=== PATIENT | female | born 1960 | race Caucasian/White ===

== ENCOUNTER 2020-06-12 14:51 | Emergency (ER) | payer OTHER ==
--- NOTE | 2020-06-12 15:37 | XRAY Report ---
PROCEDURE: Chest 1 View X-Ray INDICATIONS: dyspnea TECHNIQUE: One view of the chest was acquired. COMPARISON: None. FINDINGS: Surgical changes and devices: None. Lungs and pleura: There is diffuse interstitial prominence. Streaky bibasilar opacities with small bi lateral pleural effusions. No pneumothorax. No focal consolidations. Mediastinum: Mediastinal contours appear normal. Heart size is normal. Bones and chest wall: No suspicious bony lesions. Overlying soft tissues appear unremarkable. IMPRESSION: Diffuse interstitial prominence with small bilateral pleural effusions without focal consolidations. Findings are nonspecific and may represent sequela of infectious/inflammatory process although early pulmonary edema may have a similar appearance. Reviewed by: Harish Balderas MD on 06/12/2020 3:35 PM PST Approved by: Harish Balderas MD on 06/12/2020 3:35 PM PST Station ID: [id number]
[2020-06-12 15:45] LABS: BASOPHILS % (AUTO) 0.3 %; EOSINOPHILS # (AUTO) 0.1 10^3/uL (0.0-0.7); EOSINOPHILS % (AUTO) 0.7 %; HGB - HEMOGLOBIN 12.3 g/dL (12.0-16.0); LYMPHOCYTES # (AUTO) 1.3 10^3/uL (1.5-3.5); LYMPHOCYTES % (AUTO) 17.8 %; MEAN CORPUSCULAR HEMOGLOBIN 30.2 pg (27.0-31.0); MEAN CORPUSCULAR HGB CONC 32.5 g/dL (32.0-36.0); MEAN CORPUSCULAR VOLUME 92.9 fL (81.0-99.0); MEAN PLATELET VOLUME 9.7 fL (7.9-10.8); MONOCYTES # (AUTO) 0.6 10^3/uL (0.0-1.0); MONOCYTES % (AUTO) 8.3 %; NEUTROPHILS # (AUTO) 5.1 10^3/uL (1.5-6.6); NEUTROPHILS % (AUTO) 72.6 %; PLT - PLATELET COUNT 313 10^3/uL (130-450); RED BLOOD COUNT 4.07 10^6/uL (4.20-5.40); RED CELL DISTRIBUTION WIDTH 12.3 % (12.0-15.0)
--- NOTE | 2020-06-12 15:52 | ED Physician Documentation ---
PD HPI DYSPNEA - Stated complaint Stated Complaint: LEG SWELLING, SOA,COUGH - Chief complaint Chief Complaint: Resp - History obtained from History obtained from: Patient - History of Present Illness Timing - onset: How many weeks ago (3) Timing - onset during: Rest Timing - duration: Weeks (3) Timing - details: Gradual onset, Still present Inciting event(s): URI Improved by: Rest, Sitting up Associated symptoms: Cough, Bilateral edema. No: Fever, Hemoptysis, Wheezing Similar symptoms before: Has not had sx before Recently seen: Clinic - Additional information Additional information: has had a CXR and EKG done sent here from urgent care with concerns for PE/CHF. 59-year-old female who was previously well has developed a dry cough about 3 weeks ago. She just felt like she had to clear her cough and felt like if she could cough something up this would improve. She has slowly developed exertional dyspnea that is worsening she is continuing to work at [employer] and about 1 week ago she began to develop swelling to her ankles. She does not have any history of hypertension or heart disease and has really rarely needed to see the doctor about anything. Review of Systems Constitutional: denies: Fever, Chills, Myalgias, Fatigue Eyes: denies: Decreased vision Ears: denies: Ear pain Nose: denies: Rhinorrhea / runny nose, Congestion Throat: denies: Sore throat Cardiac: denies: Chest pain / pressure, Palpitations Respiratory: reports: Dyspnea, Cough GI: denies: Abdominal Pain, Nausea, Vomiting : denies: Dysuria, Frequency Skin: denies: Rash Musculoskeletal: reports: Extremity swelling. 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 - Present Medications Home Medications: Ambulatory Orders Medication Instructions Recorded Confirmed No Known Home Medications 06/12/20 06/12/20 - Allergies Allergies/Adverse Reactions: Allergies Allergy/AdvReac Type Severity Reaction Status Date / Time codeine Allergy Edema Verified 06/12/20 15:13 - Social History Does the pt smoke?: No Smoking Status: Never smoker Does the pt drink ETOH?: No Does the pt have substance abuse?: No - Immunizations Immunizations: TDAP current <10years - POLST Patient has POLST: No PD ED PE NORMAL - General General: Alert and oriented X 3, No acute distress, Well developed/nourished - HEENT HEENT: Atraumatic, PERRL, EOMI - Neck Neck: Supple, no meningeal sign, No bony TTP - Cardiac Cardiac: Other (tachy with 2/6 holosystolic murmer at LSB) - Respiratory Respiratory: No respiratory distress, Clear bilaterally - Abdomen Abdomen: Soft, Non tender - Back Back: No CVA TTP, No spinal TTP - Derm Derm: Normal color, Warm and dry, No rash - Extremities Extremities: No deformity, Other (bilateral pitting edema ) - Neuro Neuro: Alert and oriented X 3, 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, No motor deficit, No sensory deficit, Normal speech Eye Opening: Spontaneous Motor: Obeys Commands Verbal: Oriented GCS Score: 15 - Psych Psych: Normal mood, Normal affect Results - Vitals Vitals: Vital Signs - 24 hr 06/12/20 06/12/20 06/12/20 15:11 16:14 17:16 Temperature 36.3 C L 36.8 C Heart Rate 90 120 H 116 H Respiratory 20 22 24 Rate Blood Pressure 132/76 H 120/84 H 106/53 L O2 Saturation 100 100 96 06/12/20 06/12/20 06/12/20 18:37 19:13 19:22 Temperature 37.3 C Heart Rate 117 H 112 H Respiratory 17 18 16 Rate Blood Pressure 134/85 H O2 Saturation 100 100 06/12/20 20:38 Temperature Heart Rate Respiratory 15 Rate Blood Pressure O2 Saturation Oxygen O2 Source Room air - EKG (time done) 1540 Rate: Rate (enter#) (115) Rhythm: LAE QRS: LVH, Low voltage (precordial extremity leads) Ischemia: ST elevation c/w ischemia (to lead V3) Compare to prior EKG: Old EKG unavailable Computer interpretation: Agree with computer - Labs Labs: Laboratory Tests 06/12/20 06/12/20 06/12/20 15:35 15:38 15:38 WBC 7.0 RBC 4.07 L Hgb 12.3 Hct 37.8 MCV 92.9 MCH 30.2 MCHC 32.5 RDW 12.3 Plt Count 313 MPV 9.7 Neut # (Auto) 5.1 Lymph # (Auto) 1.3 L [place] # (Auto) 0.6 Eos # (Auto) 0.1 Baso # (Auto) 0.0 Absolute Nucleated RBC 0.00 Nucleated RBC % 0.0 Sodium 131 L Potassium 4.1 Chloride 100 L Carbon Dioxide 21 Anion Gap 10.0 BUN 25 H Creatinine 0.6 Estimated GFR (MDRD) 102 Glucose 123 H Calcium 8.9 Total Bilirubin 0.5 AST 113 H ALT 169 H Alkaline Phosphatase 172 H Troponin I High Sens B-Natriuretic Peptide Total Protein 6.5 L Albumin 3.8 Globulin 2.7 Albumin/Globulin Ratio 1.4 Lipase 45 TSH 6.64 H 06/12/20 06/12/20 15:38 15:47 WBC RBC Hgb Hct MCV MCH MCHC RDW Plt Count MPV Neut # (Auto) Lymph # (Auto) [place] # (Auto) Eos # (Auto) Baso # (Auto) Absolute Nucleated RBC Nucleated RBC % Sodium Potassium Chloride Carbon Dioxide Anion Gap BUN Creatinine Estimated GFR (MDRD) Glucose Calcium Total Bilirubin AST ALT Alkaline Phosphatase Troponin I High Sens 23.6 H* B-Natriuretic Peptide 2790 H Total Protein Albumin Globulin Albumin/Globulin Ratio Lipase TSH - Rads (name of study) cxr Radiology: Prelim report reviewed (Impression: Diffuse interstitial prominence with small bilateral pleural effusions without focal consolidations. Findings are more nonspecific and may represent sequela of infectious/inflammatory process although early pulmonary edema may have similar appearance.), EMP read indepedently, See rad report cta chest Radiology: Prelim report reviewed (Impression: 1. Moderate right and small left pleural effusions with adjacent atelectasis. No pulmonary embolism.), EMP read indepedently, See rad report Procedures - IVC sono (time) 1600 Bedside IVC sono: IVC measures (cm) (2.56), High CVP PD MEDICAL DECISION MAKING - ED course Complexity details: reviewed results, re-evaluated patient, considered annemarie bruno, d/w patient, d/w customer sales consultant (DR. Mcwilliams at [facility] cardiology recommends diuresis and transfer to hospitalist service. ) ED course: 59-year-old female presents to the emergency department with progressive exertional dyspnea and a dry cough with ankle swelling. Her chest x-ray is concerning for bilateral pleural effusions and not much edema. I interrogated the IVC and found it to be enlarged at 2.54cm the right ventricle appears generous and I became concerned about a potential PE and a CT angiogram was obtained without evidence of PE. Her BNP is elevated above 2000, but the heart is not enlarged. She has minimal elevation in the trop consistent with strain. She is administered IV lasix. We do not have echo here until next week and I believe this patient would benefit from diuresis and cardiology evaluation and we have reached out to our friends at [facility]. Dr. Obrien has agreed to consult on the patient and recommends admission to the hospitalist at [facility] and Dr. Matthews the hospitalist is graciously accepting the patient in transfer. Departure - Departure Disposition: 02 Transfer Acute Care Hosp Clinical Impression: Congestive heart failure Qualifiers: Heart failure type: unspecified Heart failure chronicity: acute Qualified Code(s): I50.9 - Heart failure, unspecified Condition: Stable
[2020-06-12 15:58] LABS: ALBUMIN 3.8 g/dL (3.2-5.5); ALBUMIN/GLOBULIN RATIO 1.4 (1.0-2.2); BILIRUBIN,TOTAL 0.5 mg/dL (0.2-1.0); CALCIUM 8.9 mg/dL (8.5-10.3); CREATININE 0.6 mg/dL (0.4-1.0); TOTAL PROTEIN 6.5 g/dL (6.7-8.2)
[2020-06-12] MEDS ORDERED: IOVERSOL 320 100 ML VIAL IVP ONE ×2 (16:32→17:58)
--- NOTE | 2020-06-12 17:52 | CT Report ---
PROCEDURE: ANGIO CHEST W/WO INDICATIONS: dyspnea with right heart strain CONTRAST: IV CONTRAST: Optiray 320 ml: 80 PO CONTRAST: *NO PO CONTRAST TECHNIQUE: After the administration of intravenous contrast, 2 mm thick sections acquired from the pulmonary api zahira to the posterior costophrenic angles. 3-dimensional maximum intensity projection (MIP) coronal a nd sagittal reformats were then acquired through the thorax. For radiation dose reduction, the follow ing was used: automated exposure control, adjustment of mA and/or kV according to patient size. COMPARISON: FINDINGS: Image quality: Excellent. Pulmonary arteries: Pulmonary arteries are normal in size, and demonstrate no intraluminal filling d efects to suggest central pulmonary embolism. Lungs and pleura: There are moderate right and small left pleural effusions with adjacent atelectasis . No focal consolidation. No pneumothorax. Central and peripheral airways are patent. Mediastinum: Cardiac chambers are enlarged, predominantly the left ventricle. No pericardial effusion . No mediastinal or hilar adenopathy. Thoracic aorta is normal in caliber and enhancement. Esophagu s is normal in caliber, without hiatal hernia. Bones and chest wall: No suspicious bony lesions. Ribs and thoracic spine appear intact throughout. The thyroid is normal. No axillary or supraclavicular adenopathy. Abdomen: Visualized upper abdominal solid organs appear normal in the early arterial phase of enhanc ement. IMPRESSION: 1. Moderate right and small left pleural effusions with adjacent atelectasis. 2. No pulmonary embolism. Reviewed by: Obie Nevarez on 06/12/2020 5:50 PM [facility] Approved by: Obie Nevarez on 06/12/2020 5:50 PM [facility] Station ID: [id number]
[2020-06-12] MEDS ORDERED: FUROSEMIDE 40 MG/4 ML VIAL IVP STA (18:13)
[2020-06-12 18:38] VITALS: BP 134/85
[2020-06-12 21:31] LABS: C. PNEUMONIAE- RESP PCR PANEL NOT DETECTED
== END 2020-06-12 21:58 | disposition short-term general hospital (02) ==
LOC: ED 14:51
DX: I50.9 Heart failure, unspecified (principal); R00.0 Tachycardia, unspecified; I50.1 Left ventricular failure, unspecified; Z20.828 Contact with and (suspected) exposure to other viral communicable diseases
CPT/HCPCS: 0202U; 36415; 71045; 71275; 83690; 83880; 84484; 93005; 96374; 99284; 99285; Q9967; 80053; 84443; 85025

== ENCOUNTER 2020-06-12 21:53 | Outpatient (CLI) | payer OTHER | END 2020-06-12 21:54 | disposition short-term general hospital (02) | LOC: EMS 21:53 | PROVIDERS: ATTEND Surgery | DX: I50.9 Heart failure, unspecified (principal) | CPT/HCPCS: A0425; A0426 ==

== ENCOUNTER 2020-08-06 09:45 | Observation (INO) | payer OTHER ==
--- NOTE | 2020-08-06 10:10 | ED Physician Documentation ---
History of Present Illness - Stated complaint Stated Complaint: SOA/SWELLING - Chief complaint Chief Complaint: Cardiac - History obtained from History obtained from: Patient - Additonal information Additional information: 59-year-old woman with past medical history of cardiomyopathy diagnosed at [facility] in May on digoxin, Lasix 20 mg daily, metoprolol 25 mg daily. Presents with progressive dyspnea on exertion, bilateral lower extremity edema left worse than right, and 7 to 10 days of nonproductive cough associated with fatigue and orthopnea. Patient denies fevers chills chest pain nausea vomiting abdominal pain back pain or diarrhea. Review of Systems Constitutional: reports: Myalgias, Fatigue. 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 - Present Medications Home Medications: Ambulatory Orders Medication Instructions Recorded Confirmed Aspirin [Aspirin EC] 81 mg PO DAILY 08/06/20 08/06/20 Digoxin [Lanoxin] 125 mcg PO DAILY 08/06/20 08/06/20 Furosemide [Lasix] 20 mg PO DAILY 08/06/20 08/06/20 Metoprolol Succinate [Toprol Xl] 25 mg PO DAILY 08/06/20 08/06/20 - Allergies Allergies/Adverse Reactions: Allergies Allergy/AdvReac Type Severity Reaction Status Date / Time codeine Allergy Edema Verified 08/06/20 09:58 - Social History Does the pt smoke?: No Smoking Status: Never smoker Does the pt drink ETOH?: No Does the pt have substance abuse?: No - Immunizations Immunizations: TDAP current <10years - POLST Patient has POLST: No PD ED PE NORMAL - Vitals Vital signs reviewed: Yes - General General: Alert and oriented X 3, No acute distress - HEENT HEENT: Atraumatic, PERRL, EOMI - Neck Neck: Supple, no meningeal sign - Cardiac Cardiac: Other - Respiratory Respiratory: No respiratory distress, Other (Bilateral dependent crackles) - Abdomen Abdomen: Normal bowel sounds, Non tender, Non distended - Female Female : Deferred - Rectal Rectal: Deferred - Back Back: No CVA TTP - Derm Derm: Normal color - Extremities Extremities: No deformity, Other (BL LE, left > right) - Neuro Neuro: Alert and oriented X 3 - Psych Psych: Normal mood, Normal affect Results - Vitals Vitals: Vital Signs - 24 hr 08/06/20 08/06/20 08/06/20 09:54 10:10 10:42 Temperature 36.6 C 36.5 C Heart Rate 57 L 113 H 108 H Respiratory 22 16 20 Rate Blood Pressure 129/88 H 95/85 H 116/94 H O2 Saturation 96 98 100 08/06/20 13:17 Temperature Heart Rate 91 Respiratory 18 Rate Blood Pressure 118/66 O2 Saturation 99 Oxygen O2 Source Room air - EKG (time done) 1330 Rate: Rate (enter#) (114) Rhythm: Other (sinus tach with frequent PVCs) Intervals: Normal MD Ischemia: Other (jailyn in anterior leads c/w prior ekg 06/10. evidence of LAE/LVH) - Labs Labs: Laboratory Tests 08/06/20 08/06/20 08/06/20 10:26 10:26 10:26 WBC 9.6 RBC 4.55 Hgb 12.9 Hct 40.3 MCV 88.6 MCH 28.4 MCHC 32.0 RDW 14.2 Plt Count 334 MPV 10.1 Neut # (Auto) 7.5 H Lymph # (Auto) 1.1 L [place] # (Auto) 0.9 Eos # (Auto) 0.1 Baso # (Auto) 0.0 Absolute Nucleated RBC 0.00 Nucleated RBC % 0.0 VBG pH VBG pCO2 VBG pO2 VBG HCO3 VBG Total CO2 VBG O2 Saturation VBG Base Excess Sodium 129 L Potassium 4.5 Chloride 97 L Carbon Dioxide 20 L Anion Gap 12.0 BUN 32 H Creatinine 0.9 Estimated GFR (MDRD) 64 L Glucose 168 H Calcium 8.7 Total Bilirubin 1.5 H AST 158 H ALT 195 H Alkaline Phosphatase 186 H Troponin I High Sens 23.0 H* B-Natriuretic Peptide Total Protein 6.4 L Albumin 3.4 Globulin 3.0 Albumin/Globulin Ratio 1.1 Lipase 33 Nasal Adenovirus (PCR) Nasal B. parapertussis DNA (PCR) Nasal Coronavir 229E PCR Nasal Coronavir HKU1 PCR Nasal Coronavir NL63 PCR Nasal Coronavir OC43 PCR Nasal Enterovir/Rhinovir PCR Nasal Influenza B PCR Nasal Influenza A PCR Nasal Parainfluen 1 PCR Nasal Parainfluen 2 PCR Nasal Parainfluen 3 PCR Nasal Parainfluen 4 PCR Nasal RSV (PCR) Nasal B.pertussis DNA PCR Nasal C.pneumoniae (PCR) [place] Human Metapneumo PCR Nasal M.pneumoniae (PCR) Nasal SARS-CoV-2 (PCR) 08/06/20 08/06/20 08/06/20 10:26 10:26 11:15 WBC RBC Hgb Hct MCV MCH MCHC RDW Plt Count MPV Neut # (Auto) Lymph # (Auto) [place] # (Auto) Eos # (Auto) Baso # (Auto) Absolute Nucleated RBC Nucleated RBC % VBG pH 7.437 H VBG pCO2 27.4 L VBG pO2 56.4 H VBG HCO3 18.1 L VBG Total CO2 18.9 L VBG O2 Saturation 88.4 H VBG Base Excess -4.6 L Sodium Potassium Chloride Carbon Dioxide Anion Gap BUN Creatinine Estimated GFR (MDRD) Glucose Calcium Total Bilirubin AST ALT Alkaline Phosphatase Troponin I High Sens B-Natriuretic Peptide 4708 H Total Protein Albumin Globulin Albumin/Globulin Ratio Lipase Nasal Adenovirus (PCR) NOT DETECTED Nasal B. parapertussis DNA (PCR) NOT DETECTED Nasal Coronavir 229E PCR NOT DETECTED Nasal Coronavir HKU1 PCR NOT DETECTED Nasal Coronavir NL63 PCR NOT DETECTED Nasal Coronavir OC43 PCR NOT DETECTED Nasal Enterovir/Rhinovir PCR DETECTED A Nasal Influenza B PCR NOT DETECTED Nasal Influenza A PCR NOT DETECTED Nasal Parainfluen 1 PCR NOT DETECTED Nasal Parainfluen 2 PCR NOT DETECTED Nasal Parainfluen 3 PCR NOT DETECTED Nasal Parainfluen 4 PCR NOT DETECTED Nasal RSV (PCR) NOT DETECTED Nasal B.pertussis DNA PCR NOT DETECTED Nasal C.pneumoniae (PCR) NOT DETECTED [place] Human Metapneumo PCR NOT DETECTED Nasal M.pneumoniae (PCR) NOT DETECTED Nasal SARS-CoV-2 (PCR) NOT DETECTED PD MEDICAL DECISION MAKING - ED course ED course: 59-year-old woman presents with CHF exacerbation, likely triggered by enterovirus/rhinovirus infection. Patient amenable to admission. Will discuss with hospitalist. 80 mg IV Lasix given. Departure - Departure Disposition: 66 [facility] DC/Xfer Clinical Impression: Viral upper respiratory illness, Acute exacerbation of CHF (congestive heart failure) Condition: Stable
--- NOTE | 2020-08-06 10:26 | XRAY Report ---
PROCEDURE: Chest 1 View X-Ray INDICATIONS: Chest pain TECHNIQUE: One view of the chest was acquired. COMPARISON: 06/12/2020 FINDINGS: Surgical changes and devices: None. Lungs and pleura: Trace bilateral pleural fluid collections. Mild bilateral interstitial prominence. Mediastinum: Mediastinal contours appear normal. Heart size is normal. Bones and chest wall: No suspicious bony lesions. Overlying soft tissues appear unremarkable. IMPRESSION: Trace bilateral pleural fluid collections. Mild bilateral interstitial prominence is nonspecific, but could represent pulmonary edema or atypica l pneumonia. Reviewed by: Lizbeth Luke MD, PhD on 08/06/2020 10:25 AM [facility] Approved by: Lizbeth Luke MD, PhD on 08/06/2020 10:25 AM [facility] Station ID: [id number]
[2020-08-06 10:34] LABS: BASOPHILS % (AUTO) 0.3 %; EOSINOPHILS # (AUTO) 0.1 10^3/uL (0.0-0.7); EOSINOPHILS % (AUTO) 0.9 %; HGB - HEMOGLOBIN 12.9 g/dL (12.0-16.0); LYMPHOCYTES # (AUTO) 1.1 10^3/uL (1.5-3.5); MEAN CORPUSCULAR HEMOGLOBIN 28.4 pg (27.0-31.0); MEAN CORPUSCULAR VOLUME 88.6 fL (81.0-99.0); MEAN PLATELET VOLUME 10.1 fL (7.9-10.8); MONOCYTES # (AUTO) 0.9 10^3/uL (0.0-1.0); MONOCYTES % (AUTO) 9.4 %; NEUTROPHILS # (AUTO) 7.5 10^3/uL (1.5-6.6); NEUTROPHILS % (AUTO) 78.2 %; PLT - PLATELET COUNT 334 10^3/uL (130-450); RED BLOOD COUNT 4.55 10^6/uL (4.20-5.40); RED CELL DISTRIBUTION WIDTH 14.2 % (12.0-15.0); WHITE BLOOD COUNT 9.6 x10^3/uL (4.8-10.8)
[2020-08-06 10:39] LABS: VBG BASE EXCESS -4.6 mmol/L (-2 - +2); VBG PCO2 27.4 mmHg (41-51); VBG PH 7.437 (7.31-7.41); VBG PO2 56.4 mmHg (25-47); VBG TOTAL CO2 18.9 mmol/L (24-29)
[2020-08-06 10:46] LABS: ALBUMIN 3.4 g/dL (3.2-5.5); ALBUMIN/GLOBULIN RATIO 1.1 (1.0-2.2); BILIRUBIN,TOTAL 1.5 mg/dL (0.2-1.0); CALCIUM 8.7 mg/dL (8.5-10.3); CREATININE 0.9 mg/dL (0.4-1.0); TOTAL PROTEIN 6.4 g/dL (6.7-8.2)
[2020-08-06] MEDS ORDERED: IOVERSOL 320 100 ML VIAL IVP ONE ×2 (11:42→12:49)
[2020-08-06] MEDS ORDERED: LACTATED RINGERS 500 ML IV STA (11:42)
[2020-08-06 12:18] LABS: C. PNEUMONIAE- RESP PCR PANEL NOT DETECTED
--- NOTE | 2020-08-06 12:53 | CT Report ---
PROCEDURE: ANGIO CHEST W/WO INDICATIONS: Shortness of breath, history of cardiomyopathy CONTRAST: IV CONTRAST: Optiray 320 ml: 80 PO CONTRAST: *NO PO CONTRAST TECHNIQUE: After the administration of intravenous contrast, 2 mm thick sections acquired from the pulmonary api zahira to the posterior costophrenic angles. 3-dimensional maximum intensity projection (MIP) coronal a nd sagittal reformats were then acquired through the thorax. For radiation dose reduction, the follow ing was used: automated exposure control, adjustment of mA and/or kV according to patient size. COMPARISON: 06/12/2020 FINDINGS: Image quality: Excellent. Pulmonary arteries: Pulmonary arteries are normal in size, and demonstrate no intraluminal filling d efects to suggest central pulmonary embolism. Lungs and pleura: Lungs are clear. Moderate-sized bilateral pleural effusions are redemonstrated, si milar size to those previously present. No pneumothorax. Central and And peripheral airways are paten t. Mediastinum: Heart size is mildly enlarged, particularly the left ventricle, but without pericardial effusion. No mediastinal or hilar adenopathy. Thoracic aorta is normal in caliber and enhancement. Mild calcific atherosclerosis. Esophagus is normal in caliber, without hiatal hernia. Bones and chest wall: No suspicious bony lesions. Ribs and thoracic spine appear intact throughout. The thyroid is normal. No axillary or supraclavicular adenopathy. Abdomen: Visualized upper abdominal solid organs appear normal in the early arterial phase of enhanc ement. IMPRESSION: 1. No pulmonary embolus. 2. Stable moderate size bilateral pleural effusions and chronic mild cardiomegaly suggesting CHF. Reviewed by: Mari Villeda MD on 08/06/2020 11:52 AM [facility] Approved by: Mari Villeda MD on 08/06/2020 11:52 AM [facility] Station ID: [id number]
[2020-08-06] MEDS ORDERED: FUROSEMIDE 40 MG/4 ML VIAL IVP STA (13:16)
[2020-08-06] MEDS ORDERED: ACETAMINOPHEN 325 MG TABLET PO PRN ×2 (14:01→20:55)
[2020-08-06] MEDS ORDERED: SODIUM CHLORIDE FLUSH 0.9% 10 ML SYRINGE IVP PRN (14:01)
[2020-08-06] MEDS ORDERED: ONDANSETRON 4 MG/2 ML VIAL IVP PRN (14:01)
--- NOTE | 2020-08-06 14:25 | HISTORY & PHYSICAL EXAMINATION ---
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 - POLST Patient has POLST: No Meds/Allgy - Home Medications Home Medications: Ambulatory Orders Medication Instructions Recorded Confirmed Aspirin [Aspirin EC] 81 mg PO DAILY 08/06/20 08/07/20 Digoxin [Lanoxin] 125 mcg PO DAILY 08/06/20 08/07/20 Furosemide [Lasix] 20 mg PO DAILY 08/06/20 08/07/20 Metoprolol Succinate [Toprol Xl] 25 mg PO DAILY 08/06/20 08/07/20 - Allergies Allergies/Adverse Reactions: Allergies Allergy/AdvReac Type Severity Reaction Status Date / Time codeine Allergy Edema Verified 08/06/20 09:58 Exam - Vital Signs Vital Signs: Vital Signs x48h Temp Pulse Resp BP Pulse Ox 08/06/20 13:17 91 18 118/66 99 08/06/20 10:42 108 H 20 116/94 H 100 08/06/20 10:10 36.5 C 113 H 16 95/85 H 98 08/06/20 09:54 36.6 C 57 L 22 129/88 H 96 Conclusion/Plan - Lab Results Fish Bones: 08/07/20 04:45 08/07/20 04:45
[2020-08-06] MEDS: SODIUM CHLORIDE FLUSH 0.9% 10 ML SYRINGE IVP SCH ×2 (20:34→23:55)
[2020-08-06] MEDS ORDERED: METOPROLOL SUCCINATE 25 MG TABLET PO SCH (22:00)
[2020-08-06] MEDS: ASCORBIC ACID CHEW 500 MG TABLET PO SCH (22:37)
--- NOTE | 2020-08-07 00:17 | HISTORY & PHYSICAL EXAMINATION ---
DATE OF SERVICE: 08/06/2020 Physician: Josselin Hooper MD HISTORY OF PRESENT ILLNESS: This is a 59-year-old white female who was healthy until about May 2020 when she presented to our emergency room with shortness of breath and leg edema, was found to have pulmonary edema on chest x- ray and was transferred from our ER to [facility] since we had no weekend Echo available to start her workup. She reports that she was at that hospital for about a week, had about 7 pounds of fluid diuresed off, had an Echo that showed an ejection fraction of 25%, underwent a coronary angiogram that showed no coronary stenosis. She was discharged on beta navarro, CLARA inhibitor, spironolactone and Lasix. She was to see her new Parts Sales Advisor; however, the appointment has been canceled and rescheduled twice and she has not seen anyone yet. She was told to hold the spironolactone and lisinopril until her potassium was rechecked, so she has not been taking those two for some period of time. She was discharged on a LifeVest (external defibrillator), while she is awaiting the three months required to see if medical management will improve her ejection fraction, as per guidelines. She has not yet had another Echo to check the EF. There have been no events while she is wearing her LifeVest. About 10 days ago, she started to notice dyspnea on exertion like she had in May and leg edema increasing, left more than right, but no other new complaints on the left leg. She also noticed a weight gain of 4 pounds and then 8 pounds over the last several days. Yesterday, she became orthopneic and because of this, she came to the E. She also has developed a cough that is rattly, but she cannot bring up any sputum. She denies a fever. She denies any chest pain. She has been compliant with her medications and CHF management. PAST MEDICAL HISTORY: None until May 2020 when she was diagnosed with CHF and was told it is idiopathic cardiomyopathy. ALLERGIES: CODEINE. MEDICATIONS 1. Metoprolol succinate 25 mg daily. 2. Digoxin 125 mcg daily. 3. Aspirin 81 mg daily. 4. Lasix 40 mg daily. She has been off her spironolactone and lisinopril for an unknown period of time. FAMILY HISTORY: Her sister has idiopathic cardiomyopathy as well, which started in 2016 and on medical management and with a defibrillator it is improved to the 50% range. SOCIAL HISTORY: The patient is a nonsmoker who never smoked, drinks no alcohol, no illicit drug use history. 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 She lives with her . They have no children. REVIEW OF SYSTEMS: A comprehensive review of systems was performed. The pertinent positives are listed, the rest are negative. PHYSICAL EXAM GENERAL: Thin, white female. She is in no distress, sitting upright in bed. VITAL SIGNS: Blood pressure 118/66, heart rate 102 in sinus tachycardia, afebrile, room air saturation 100%. She had a lower BP of 90 systolic briefly. HEENT: Unremarkable. NECK: Shows no JVD in a vertical position. CHEST: Bilateral crackles up one-half. HEART: Soft S1, S2 and a 3/6 pansystolic murmur at the mitral area. There is no gallop. ABDOMEN: Soft, nontender. No organomegaly. EXTREMITIES: 1+ edema to the knees with left slightly more than the right side. Negative Donnell's sign on the left. No varicose veins seen. NEUROLOGIC: Grossly intact. LABORATORY DATA: Sodium 129, potassium 4.5, chloride 97, carbon dioxide 20, BUN 32, creatinine 0.9, bilirubin 1.5, AST 158, ALT 195, alkaline phosphatase 186. Troponin is 23 and on repeat 28. BNP 4708 (two months ago the BNP was in the 2000 range). Lipase is normal. CBC is normal. Blood gas showed a pH of 7.43. No INR was done. Her BioFire shows negative COVID, but was positive for rhinovirus. IMAGING: Chest x-ray shows atypical pneumonia versus CHF. EKG: Normal sinus rhythm, low voltage in all leads, frequent PVCs, poor R-wave progression. Since her EKG from May 2020, there is a change: she then had LVH voltage, now she has low voltage. IMPRESSION/DIAGNOSES 1. Acute on chronic systolic heart failure. 2. Idiopathic cardiomyopathy. 3. Hyponatremia, which appears to be hypervolemic hyponatremia. 4. Prerenal azotemia, which appears to be intravascular volume depletion from using Lasix despite volume overload elsewhere. 5. Mitral regurgitation murmur. 6. Liver congestion. 7. Abnormal EKG with loss of her LVH, this is concerning for worsening myocardial contractility vs pericardial effusion. There are no signs of tamponade. 8. Rhinoviral upper respiratory infection. PLAN: Place the patient in Observation status on telemetry. Continue aggressive diuresis with IV b.i.d. Lasix and follow her I's and O's and daily weights, follow electrolytes and magnesium. Restrict free water intake. Increase the beta-navarro dose to b.i.d, given her elevated resting heart rate, and overall the plan would be to eventually achieve the target Metoprolol dose of 200 daily for CHF. She has not been able to adjust meds since she has not seen her Parts Sales Advisor for follow up visits yet. Check a Dig level. Continue with Digoxin and her other cardiac medications. Resume lisinopril and Spironolactone, albeit at low doses because she runs a "soft" blood pressure. Will add Compression Stockings for helping low BP, and she should be discharged with a Jobst (compression) stocking prescription. We will request our discharge nurse to help her establish with a PCP and also to get her back to see the Parts Sales Advisor. Continue with the LifeVest (external defibrillator) when she is at home. DEEP VENOUS THROMBOSIS PROPHYLAXIS: SCDs. CODE STATUS: FULL CODE. ATTESTATION: Patient is expected to be discharged or transferred to another facility within 96 hours: Yes. TD: 08/06/2020 23:59 MTDD
[2020-08-07] MEDS ORDERED: METOPROLOL SUCCINATE 25 MG TABLET PO SCH ×2 (00:18→09:00)
[2020-08-07 05:01] LABS: BASOPHILS % (AUTO) 0.6 %; EOSINOPHILS # (AUTO) 0.2 10^3/uL (0.0-0.7); EOSINOPHILS % (AUTO) 3.5 %; HGB - HEMOGLOBIN 11.5 g/dL (12.0-16.0); LYMPHOCYTES # (AUTO) 0.9 10^3/uL (1.5-3.5); LYMPHOCYTES % (AUTO) 12.7 %; MEAN CORPUSCULAR HEMOGLOBIN 27.6 pg (27.0-31.0); MEAN CORPUSCULAR HGB CONC 32.1 g/dL (32.0-36.0); MEAN CORPUSCULAR VOLUME 86.1 fL (81.0-99.0); MEAN PLATELET VOLUME 9.8 fL (7.9-10.8); MONOCYTES # (AUTO) 0.7 10^3/uL (0.0-1.0); MONOCYTES % (AUTO) 9.6 %; NEUTROPHILS % (AUTO) 73.3 %; PLT - PLATELET COUNT 262 10^3/uL (130-450); RED BLOOD COUNT 4.16 10^6/uL (4.20-5.40); WHITE BLOOD COUNT 6.9 x10^3/uL (4.8-10.8)
[2020-08-07 05:14] LABS: ALBUMIN 2.9 g/dL (3.2-5.5); ALBUMIN/GLOBULIN RATIO 1.2 (1.0-2.2); BILIRUBIN,TOTAL 0.9 mg/dL (0.2-1.0); CALCIUM 8.4 mg/dL (8.5-10.3); CREATININE 0.7 mg/dL (0.4-1.0); TOTAL PROTEIN 5.4 g/dL (6.7-8.2)
[2020-08-07 05:37] LABS: DIGOXIN < 0.2 ng/mL
[2020-08-07] MEDS ORDERED: FUROSEMIDE 20 MG/2 ML VIAL IVP SCH (06:00)
[2020-08-07] MEDS: PANTOPRAZOLE 40 MG TABLET PO SCH (06:18)
[2020-08-07] MEDS: FUROSEMIDE 20 MG/2 ML VIAL IVP SCH ×2 (06:18→13:57)
[2020-08-07] MEDS: ASCORBIC ACID CHEW 500 MG TABLET PO SCH (08:04)
[2020-08-07] MEDS: SPIRONOLACTONE 25 MG TABLET PO SCH (08:04)
[2020-08-07] MEDS: ASPIRIN EC 81 MG TABLET PO SCH (08:04)
[2020-08-07] MEDS: DIGOXIN 125 MCG TABLET PO SCH (08:04)
[2020-08-07] MEDS: SODIUM CHLORIDE FLUSH 0.9% 10 ML SYRINGE IVP SCH ×2 (08:05→16:35)
[2020-08-07] MEDS ORDERED: POTASSIUM CHLORIDE 20 MEQ TABLET PO ONE (08:23)
[2020-08-07] MEDS ORDERED: SPIRONOLACTONE 25 MG TABLET PO SCH (09:00)
--- NOTE | 2020-08-07 12:07 | PROVIDER PROGRESS NOTE ---
Subjective - Prog Note Date Prog Note Date: 08/07/20 - Subjective Subjective: She still complains of a cough. Feels her dyspnea has improved but she is not back to her baseline. Her lower extremity edema has improved. She is concerned that she gained approximately 6 pounds over the past week or so prior to this hospitalization. Current Medications - Current Medications Current Medications: Active Medications Acetaminophen (Acetaminophen 325 Mg Tablet) 650 mg PO Q4HR PRN PRN Reason: Pain or Fever > 38C (100.4F) Ascorbic Acid (Ascorbic Acid Chew 500 Mg Tablet) 500 mg PO DAILY [facility] Last Admin: 08/07/20 08:04 Dose: 500 mg Documented by: Aspirin (Aspirin Ec 81 Mg Tablet) 81 mg PO DAILY [facility] Last Admin: 08/07/20 08:04 Dose: 81 mg Documented by: Digoxin (Digoxin 125 Mcg Tablet) 125 mcg PO DAILY [facility] Last Admin: 08/07/20 08:04 Dose: 125 mcg Documented by: Furosemide (Furosemide 20 Mg/2 Ml Vial) 20 mg IVP BIDDIURETIC [facility] Last Admin: 08/07/20 06:18 Dose: 20 mg Documented by: Metoprolol Succinate (Metoprolol Succinate 25 Mg Tablet) 25 mg PO DAILY [facility] Ondansetron HCl (Ondansetron 4 Mg/2 Ml Vial) 4 mg IVP Q6HR PRN PRN Reason: Nausea / Vomiting Pantoprazole Sodium (Pantoprazole 40 Mg Tablet) 40 mg PO QDAC [facility] Last Admin: 08/07/20 06:18 Dose: 40 mg Documented by: Sodium Chloride (Sodium Chloride Flush 0.9% 10 Ml Syringe) 10 ml IVP PRN PRN PRN Reason: NEEDED PER PROVIDER ORDERS Sodium Chloride (Sodium Chloride Flush 0.9% 10 Ml Syringe) 10 ml IVP 0100,0900,1700 [facility] Last Admin: 08/07/20 08:05 Dose: 10 ml Documented by: Spironolactone (Spironolactone 25 Mg Tablet) 25 mg PO DAILY [facility] Last Admin: 08/07/20 08:04 Dose: 25 mg Documented by: Aspirin [Aspirin EC] 81 mg PO DAILY 08/06/20 Digoxin [Lanoxin] 125 mcg PO DAILY 08/06/20 Furosemide [Lasix] 20 mg PO DAILY 08/06/20 Metoprolol Succinate [Toprol Xl] 25 mg PO DAILY 08/06/20 Objective - Vital Signs/Intake & Output Reviewed Vital Signs: Yes Vital Signs: Vital Signs x48h Temp Pulse Pulse Resp BP Pulse Ox 08/07/20 09:45 73 08/07/20 08:02 103 H 121/99 H 08/07/20 08:00 37.2 C 104 H 16 121/99 H 100 08/07/20 06:18 102/73 08/07/20 04:48 36.8 C 95 16 111/57 L 96 Intake & Output: Intake & Output 08/04/20 08/05/20 08/06/20 08/07/20 23:59 23:59 23:59 23:59 Intake Total 1440 595 Output Total 1950 1180 Balance -510 -585 - Objective General Appearance: positive: No acute distress, Alert Eyes Bilateral: positive: Normal inspection, Conjunctivae nml ENT: positive: ENT inspection nml Neck: positive: Nml inspection Respiratory: positive: No respiratory distress, Other (Diminished in bases.). negative: Wheezes, Rhonchi Cardiovascular: positive: Regular rate & rhythm, No murmur. negative: Systolic murmur Abdomen: positive: Non-tender, No distention. negative: Tenderness Skin: positive: Warm, Dry Extremities: positive: Pedal edema (Trace edema in bilateral lower extremities.). negative: Calf tenderness - Lab Results Fish Bones: 08/07/20 04:45 08/07/20 04:45 Other Labs: Lab Results x24hrs 08/07/20 08/07/20 08/07/20 Range/Units 04:45 04:45 04:45 WBC (4.8-10.8) x10^3/uL RBC (4.20-5.40) 10^6/uL Hgb (12.0-16.0) g/dL Hct (37.0-47.0) % MCV (81.0-99.0) fL MCH (27.0-31.0) pg MCHC (32.0-36.0) g/dL RDW (12.0-15.0) % Plt Count (130-450) 10^3/uL MPV (7.9-10.8) fL Neut # (Auto) (1.5-6.6) 10^3/uL Lymph # (Auto) (1.5-3.5) 10^3/uL [place]ave # (Auto) (0.0-1.0) 10^3/uL Eos # (Auto) (0.0-0.7) 10^3/uL Baso # (Auto) (0.0-0.1) 10^3/uL Absolute Nucleated RBC x10^3/uL Nucleated RBC % /100WBC Sodium 135 (135-145) mmol/L Potassium 3.4 L (3.5-5.0) mmol/L Chloride 101 (101-111) mmol/L Carbon Dioxide 21 (21-32) mmol/L Anion Gap 13.0 (6-13) BUN 32 H (6-20) mg/dL Creatinine 0.7 (0.4-1.0) mg/dL Estimated GFR (MDRD) 85 L (>89) Glucose 106 H (70-100) mg/dL Calcium 8.4 L (8.5-10.3) mg/dL Magnesium 2.0 (1.7-2.8) mg/dL Total Bilirubin 0.9 (0.2-1.0) mg/dL AST 115 H (10-42) IU/L ALT 163 H (10-60) IU/L Alkaline Phosphatase 176 H (42-121) IU/L Troponin I High Sens 25.4 H* (2.3-14.8) ng/L B-Natriuretic Peptide (5-100) pg/mL Total Protein 5.4 L (6.7-8.2) g/dL Albumin 2.9 L (3.2-5.5) g/dL Globulin 2.5 (2.1-4.2) g/dL Albumin/Globulin Ratio 1.2 (1.0-2.2) Nasal Adenovirus (PCR) Nasal B. parapertussis DNA (PCR) Nasal Coronavir 229E PCR Nasal Coronavir HKU1 PCR Nasal Coronavir NL63 PCR Nasal Coronavir OC43 PCR Nasal Enterovir/Rhinovir PCR Nasal Influenza B PCR Nasal Influenza A PCR Nasal Parainfluen 1 PCR Nasal Parainfluen 2 PCR Nasal Parainfluen 3 PCR Nasal Parainfluen 4 PCR Nasal RSV (PCR) Nasal B.pertussis DNA PCR Nasal C.pneumoniae (PCR) Arnulfo Human Metapneumo PCR Nasal M.pneumoniae (PCR) Nasal SARS-CoV-2 (PCR) Last Dose Date UNKNOWN Last Dose Time UNKNOWN Digoxin < 0.2 ng/mL 08/07/20 08/07/20 08/06/20 Range/Units 04:45 04:45 21:14 WBC 6.9 (4.8-10.8) x10^3/uL RBC 4.16 L (4.20-5.40) 10^6/uL Hgb 11.5 L (12.0-16.0) g/dL Hct 35.8 L (37.0-47.0) % MCV 86.1 (81.0-99.0) fL MCH 27.6 (27.0-31.0) pg MCHC 32.1 (32.0-36.0) g/dL RDW 14.0 (12.0-15.0) % Plt Count 262 (130-450) 10^3/uL MPV 9.8 (7.9-10.8) fL Neut # (Auto) 5.0 (1.5-6.6) 10^3/uL Lymph # (Auto) 0.9 L (1.5-3.5) 10^3/uL Mohave # (Auto) 0.7 (0.0-1.0) 10^3/uL Eos # (Auto) 0.2 (0.0-0.7) 10^3/uL Baso # (Auto) 0.0 (0.0-0.1) 10^3/uL Absolute Nucleated RBC 0.00 x10^3/uL Nucleated RBC % 0.0 /100WBC Sodium (135-145) mmol/L Potassium (3.5-5.0) mmol/L Chloride (101-111) mmol/L Carbon Dioxide (21-32) mmol/L Anion Gap (6-13) BUN (6-20) mg/dL Creatinine (0.4-1.0) mg/dL Estimated GFR (MDRD) (>89) Glucose (70-100) mg/dL Calcium (8.5-10.3) mg/dL Magnesium (1.7-2.8) mg/dL Total Bilirubin (0.2-1.0) mg/dL AST (10-42) IU/L ALT (10-60) IU/L Alkaline Phosphatase (42-121) IU/L Troponin I High Sens 28.6 H* (2.3-14.8) ng/L B-Natriuretic Peptide 4202 H (5-100) pg/mL Total Protein (6.7-8.2) g/dL Albumin (3.2-5.5) g/dL Globulin (2.1-4.2) g/dL Albumin/Globulin Ratio (1.0-2.2) Nasal Adenovirus (PCR) Nasal B. parapertussis DNA (PCR) Nasal Coronavir 229E PCR Nasal Coronavir HKU1 PCR Nasal Coronavir NL63 PCR Nasal Coronavir OC43 PCR Nasal Enterovir/Rhinovir PCR Nasal Influenza B PCR Nasal Influenza A PCR Nasal Parainfluen 1 PCR Nasal Parainfluen 2 PCR Nasal Parainfluen 3 PCR Nasal Parainfluen 4 PCR Nasal RSV (PCR) Nasal B.pertussis DNA PCR Nasal C.pneumoniae (PCR) Arnulfo Human Metapneumo PCR Nasal M.pneumoniae (PCR) Nasal SARS-CoV-2 (PCR) Last Dose Date Last Dose Time Digoxin ng/mL 08/06/20 Range/Units 11:15 WBC (4.8-10.8) x10^3/uL RBC (4.20-5.40) 10^6/uL Hgb (12.0-16.0) g/dL Hct (37.0-47.0) % MCV (81.0-99.0) fL MCH (27.0-31.0) pg MCHC (32.0-36.0) g/dL RDW (12.0-15.0) % Plt Count (130-450) 10^3/uL MPV (7.9-10.8) fL Neut # (Auto) (1.5-6.6) 10^3/uL Lymph # (Auto) (1.5-3.5) 10^3/uL [place] # (Auto) (0.0-1.0) 10^3/uL Eos # (Auto) (0.0-0.7) 10^3/uL Baso # (Auto) (0.0-0.1) 10^3/uL Absolute Nucleated RBC x10^3/uL Nucleated RBC % /100WBC Sodium (135-145) mmol/L Potassium (3.5-5.0) mmol/L Chloride (101-111) mmol/L Carbon Dioxide (21-32) mmol/L Anion Gap (6-13) BUN (6-20) mg/dL Creatinine (0.4-1.0) mg/dL Estimated GFR (MDRD) (>89) Glucose (70-100) mg/dL Calcium (8.5-10.3) mg/dL Magnesium (1.7-2.8) mg/dL Total Bilirubin (0.2-1.0) mg/dL AST (10-42) IU/L ALT (10-60) IU/L Alkaline Phosphatase (42-121) IU/L Troponin I High Sens (2.3-14.8) ng/L B-Natriuretic Peptide (5-100) pg/mL Total Protein (6.7-8.2) g/dL Albumin (3.2-5.5) g/dL Globulin (2.1-4.2) g/dL Albumin/Globulin Ratio (1.0-2.2) Nasal Adenovirus (PCR) NOT DETECTED Nasal B. parapertussis DNA (PCR) NOT DETECTED Nasal Coronavir 229E PCR NOT DETECTED Nasal Coronavir HKU1 PCR NOT DETECTED Nasal Coronavir NL63 PCR NOT DETECTED Nasal Coronavir OC43 PCR NOT DETECTED Nasal Enterovir/Rhinovir PCR DETECTED A Nasal Influenza B PCR NOT DETECTED Nasal Influenza A PCR NOT DETECTED Nasal Parainfluen 1 PCR NOT DETECTED Nasal Parainfluen 2 PCR NOT DETECTED Nasal Parainfluen 3 PCR NOT DETECTED Nasal Parainfluen 4 PCR NOT DETECTED Nasal RSV (PCR) NOT DETECTED Nasal B.pertussis DNA PCR NOT DETECTED Nasal C.pneumoniae (PCR) NOT DETECTED Arnulfo Human Metapneumo PCR NOT DETECTED Nasal M.pneumoniae (PCR) NOT DETECTED Nasal SARS-CoV-2 (PCR) NOT DETECTED Last Dose Date Last Dose Time Digoxin ng/mL ABX Reporting Has patient been on IV antibiotics over the past 48 hours?: No Assessment/Plan - Problem List (1) Acute on chronic systolic CHF (congestive heart failure) Impression: She is improving but she is not yet ready for discharge. She is not hypoxic and her lower extremity edema has improved but her BNP still remains quite elevated although this is decreasing. Her weight has also not decreased since admission and I am concerned given her 6 pound weight gain over the past week or so. Repeat echocardiogram showed her ejection fraction remains around 25%. At this time, we will continue to diurese her with Lasix 20 mg IV twice daily as her blood pressure appears to be tolerating this. Continue with metoprolol 25 mg daily. We have resume spironolactone. We will continue to hold lisinopril give n her history of hyperkalemia as well as her soft blood pressures. We will look to discharge her tomorrow on all of these therapies including digoxin except for the lisinopril. Continue with daily weights. Strict I's and O's. She is scheduled to follow-up with cardiology on August 16. (2) Viral upper respiratory illness Impression: PCR panel was positive for enterovirus/rhinovirus PCR. This may be contributing to her cough although this could also be due to her heart. Continue supportive care.
--- NOTE | 2020-08-07 13:20 | PHARMACY PROGRESS NOTE ---
- Best Possible Medication History Admit Date and Time: 08/07/20 0019 Processed by: Pharmacy Medication History completed: Yes Patient Interview: Completed (Interview complete by myself 08/07) Secondary Source(s): Insurance records As the person ultimately responsible for medication therapy, providers are able to order a medication from an existing home medication list in [facility] via the "Reconcile Routine" prior to Confirmation of that medication by senior support analyst. Such practice is discouraged except when the physician, in their clinical judgment, deems that a medical need exists for a medication without regard to previous use.
[2020-08-08] MEDS: SODIUM CHLORIDE FLUSH 0.9% 10 ML SYRINGE IVP SCH ×2 (00:15→08:56)
[2020-08-08] MEDS: guaiFENesin/DEXTROMETHORPHAN 10 ML UDC PO PRN ×2 (02:06→08:56)
[2020-08-08] MEDS: FUROSEMIDE 20 MG/2 ML VIAL IVP SCH (05:34)
[2020-08-08] MEDS: PANTOPRAZOLE 40 MG TABLET PO SCH (05:34)
[2020-08-08 05:40] LABS: BASOPHILS % (AUTO) 0.4 %; EOSINOPHILS # (AUTO) 0.1 10^3/uL (0.0-0.7); EOSINOPHILS % (AUTO) 1.5 %; HGB - HEMOGLOBIN 11.9 g/dL (12.0-16.0); LYMPHOCYTES % (AUTO) 13.6 %; MEAN CORPUSCULAR HEMOGLOBIN 27.4 pg (27.0-31.0); MEAN CORPUSCULAR HGB CONC 31.6 g/dL (32.0-36.0); MEAN CORPUSCULAR VOLUME 86.7 fL (81.0-99.0); MEAN PLATELET VOLUME 10.2 fL (7.9-10.8); MONOCYTES # (AUTO) 0.8 10^3/uL (0.0-1.0); NEUTROPHILS # (AUTO) 5.4 10^3/uL (1.5-6.6); NEUTROPHILS % (AUTO) 73.1 %; PLT - PLATELET COUNT 278 10^3/uL (130-450); RED BLOOD COUNT 4.35 10^6/uL (4.20-5.40); WHITE BLOOD COUNT 7.4 x10^3/uL (4.8-10.8)
[2020-08-08 06:19] LABS: ALBUMIN/GLOBULIN RATIO 1.2 (1.0-2.2); BILIRUBIN,TOTAL 1.2 mg/dL (0.2-1.0); CALCIUM 8.6 mg/dL (8.5-10.3); CREATININE 0.8 mg/dL (0.4-1.0); TOTAL PROTEIN 5.6 g/dL (6.7-8.2)
[2020-08-08] MEDS: DIGOXIN 125 MCG TABLET PO SCH (08:53)
[2020-08-08] MEDS: ASCORBIC ACID CHEW 500 MG TABLET PO SCH (08:53)
[2020-08-08] MEDS: ASPIRIN EC 81 MG TABLET PO SCH (08:54)
[2020-08-08] MEDS: SPIRONOLACTONE 25 MG TABLET PO SCH (08:54)
[2020-08-08] MEDS ORDERED: METOPROLOL SUCCINATE 25 MG TABLET PO SCH (09:00)
--- NOTE | 2020-08-08 10:09 | DISCHARGE SUMMARY ---
"Discharge Summary Admit Date: 08/06/20 Discharge Date: 08/08/20 Discharging Provider: Otilio Padilla Primary Care Provider: [facility] Code Status: Attempt Resuscitation Condition at Discharge: Stable Discharge Disposition: 01 Home, Self Care - DIAGNOSES Admission Diagnoses: Acute on chronic systolic heart failure Idiopathic cardiomyopathy Hyponatremia Prerenal azotemia Mitral regurgitation murmur Liver congestion Abnormal EKG Rhinovirus upper respiratory infection Discharge Diagnoses with Status of Each Condition: Acute on chronic systolic heart failure - improved. Nonischemic cardiomyopathy - stable. Hyponatremia - stable. Prerenal azotemia - stable. Abormal LFTs - stable. Rhinovirus upper respiratory tract infect - stable. - HPI History of Present Illness: Please refer to H&P of Dr. Jones on 08/06/20. In summary, this is a 59-year-old female with nonischemic cardiomyopathy and ejection fraction 25% who presented with cough and dyspnea with exertion as well as increasing lower extremity edema. She was admitted for exacerbation of her heart failure. - CONSULTS | PROCEDURES Procedures: Echocardiogram revealed an ejection fraction of 20-25%. LV wall thickness is normal. Right ventricle size is normal and right ventricular systolic function is mildly impaired. Moderate functional mitral vegetation. Moderate tricuspid regurgitation. Mildly abnormal right heart pressures. The RVSP at rest is 53 mmHg. - HOSPITAL COURSE Hospital Course: She was admitted for acute on chronic systolic heart failure and diuresed with Lasix 20 mg IV twice daily. She had a mild hyponatremia which improved during his hospitalization although day of discharge, it is slightly decreased at 132. A repeat echocardiogram was obtained which showed an ejection fraction of 20-25% and RVSP at rest of 53 mmHg. He was continued on metoprolol and digoxin. We did start her on Aldactone but held lisinopril given her soft blood pressures. He was initially approximately 4700 and this improved to 4200 but day of discharge it has increased to 4800. Clinically she is improved as her lower extremity edema has resolved and she has lost 3 kg since her admission. Her creatinine is stable although her BUN did slightly increase to 40 and I suspect she is close to euvolemia at this point in time. Her LFTs are elevated but this is likely due to congestive hepatopathy. She was incidentally noted to have a rhinovirus infection which is likely contributing to our cough. Covid test was negative. She was never hypoxic during this hospitalization and she now feels back to her baseline from a dyspnea stand point. On discharge, I have asked her to increase her Lasix to 20 mg twice daily and to begin taking spironolactone. We will continue to hold lisinopril. She will continue her metoprolol and digoxin. She will be following up with her dietary aide teacher this week and I have asked her to obtain repeat labs during that visit to ensure that her renal function is stable. I did ask her to call her dietary aide teacher if she develops worsening lower extremity edema or a weight gain of more than 2 kg. The patient did not have a primary care provider and has now established care with one and she has an appointment [facility] with [facility] - ALLERGIES Allergies/Adverse Reactions: Allergies Allergy/AdvReac Type Severity Reaction Status Date / Time codeine Allergy Edema Verified 08/06/20 09:58 - MEDICATIONS Home Medications: Ambulatory Orders Medication Instructions Recorded Confirmed Aspirin [Aspirin EC] 81 mg PO DAILY 08/06/20 08/07/20 Digoxin [Lanoxin] 125 mcg PO DAILY 08/06/20 08/07/20 Metoprolol Succinate [Toprol Xl] 25 mg PO DAILY 08/06/20 08/07/20 Benzonatate [Tessalon] 100 mg PO TID PRN #15 cap 08/08/20 Furosemide [Lasix] 20 mg PO BID #0 08/08/20 08/07/20 Spironolactone [Aldactone] 25 mg PO DAILY #30 tab 08/08/20 - PHYSICAL EXAM AT DISCHARGE General Appearance: positive: No acute distress, Alert Eyes Bilateral: positive: Normal inspection, Conjunctivae nml ENT: positive: ENT inspection nml Neck: positive: Nml inspection Respiratory: positive: No respiratory distress. negative: Wheezes, Rales Cardiovascular: positive: Regular rate & rhythm, Systolic murmur. negative: Tachycardia, Bradycardia Abdomen: positive: Non-tender, No distention. negative: Tenderness, Guarding, Rebound Skin: positive: Warm, Dry Extremities: positive: Full ROM, No pedal edema Neurologic/Psychiatric: positive: Oriented x3, Motor nml. negative: Disoriented to person, Disoriented to place, Disoriented to time Physical Exam Other/Comments: Vital Signs - 24 hr 08/07/20 08/07/20 08/07/20 13:57 16:15 18:44 Temperature 36.8 C 36.6 C Heart Rate [ 56 L 65 Brachial] Respiratory 18 18 Rate Blood Pressure 119/74 128/64 121/72 [Right Brachial artery] O2 Saturation 96 98 08/08/20 08/08/20 08/08/20 00:11 05:00 08:15 Temperature 36.5 C 36.6 C 36.6 C Heart Rate [ 94 67 99 Brachial] Respiratory 20 20 18 Rate Blood Pressure 117/84 H 141/65 H 112/61 [Right Brachial artery] O2 Saturation 100 97 100 Oxygen O2 Source Room air - LABS Result Diagrams: 08/08/20 04:47 08/08/20 04:47 Other Lab Results: Laboratory Tests 08/06/20 08/06/20 08/06/20 10:26 10:26 10:26 WBC 9.6 RBC 4.55 Hgb 12.9 Hct 40.3 MCV 88.6 MCH 28.4 MCHC 32.0 RDW 14.2 Plt Count 334 MPV 10.1 Neut # (Auto) 7.5 H Lymph # (Auto) 1.1 L [place] # (Auto) 0.9 Eos # (Auto) 0.1 Baso # (Auto) 0.0 Absolute Nucleated RBC 0.00 Nucleated RBC % 0.0 VBG pH VBG pCO2 VBG pO2 VBG HCO3 VBG Total CO2 VBG O2 Saturation VBG Base Excess Sodium 129 L Potassium 4.5 Chloride 97 L Carbon Dioxide 20 L Anion Gap 12.0 BUN 32 H Creatinine 0.9 Estimated GFR (MDRD) 64 L Glucose 168 H Calcium 8.7 Magnesium Total Bilirubin 1.5 H AST 158 H ALT 195 H Alkaline Phosphatase 186 H Troponin I High Sens 23.0 H* B-Natriuretic Peptide Total Protein 6.4 L Albumin 3.4 Globulin 3.0 Albumin/Globulin Ratio 1.1 Lipase 33 Nasal Adenovirus (PCR) Nasal B. parapertussis DNA (PCR) Nasal Coronavir 229E PCR Nasal Coronavir HKU1 PCR Nasal Coronavir NL63 PCR Nasal Coronavir OC43 PCR Nasal Enterovir/Rhinovir PCR Nasal Influenza B PCR Nasal Influenza A PCR Nasal Parainfluen 1 PCR Nasal Parainfluen 2 PCR Nasal Parainfluen 3 PCR Nasal Parainfluen 4 PCR Nasal RSV (PCR) Nasal B.pertussis DNA PCR Nasal C.pneumoniae (PCR) [place] Human Metapneumo PCR Nasal M.pneumoniae (PCR) Nasal SARS-CoV-2 (PCR) Last Dose Date Last Dose Time Digoxin 08/06/20 08/06/20 08/06/20 10:26 10:26 11:15 WBC RBC Hgb Hct MCV MCH MCHC RDW Plt Count MPV Neut # (Auto) Lymph # (Auto) [place] # (Auto) Eos # (Auto) Baso # (Auto) Absolute Nucleated RBC Nucleated RBC % VBG pH 7.437 H VBG pCO2 27.4 L VBG pO2 56.4 H VBG HCO3 18.1 L VBG Total CO2 18.9 L VBG O2 Saturation 88.4 H VBG Base Excess -4.6 L Sodium Potassium Chloride Carbon Dioxide Anion Gap BUN Creatinine Estimated GFR (MDRD) Glucose Calcium Magnesium Total Bilirubin AST ALT Alkaline Phosphatase Troponin I High Sens B-Natriuretic Peptide 4708 H Total Protein Albumin Globulin Albumin/Globulin Ratio Lipase Nasal Adenovirus (PCR) NOT DETECTED Nasal B. parapertussis DNA (PCR) NOT DETECTED Nasal Coronavir 229E PCR NOT DETECTED Nasal Coronavir HKU1 PCR NOT DETECTED Nasal Coronavir NL63 PCR NOT DETECTED Nasal Coronavir OC43 PCR NOT DETECTED Nasal Enterovir/Rhinovir PCR DETECTED A Nasal Influenza B PCR NOT DETECTED Nasal Influenza A PCR NOT DETECTED Nasal Parainfluen 1 PCR NOT DETECTED Nasal Parainfluen 2 PCR NOT DETECTED Nasal Parainfluen 3 PCR NOT DETECTED Nasal Parainfluen 4 PCR NOT DETECTED Nasal RSV (PCR) NOT DETECTED Nasal B.pertussis DNA PCR NOT DETECTED Nasal C.pneumoniae (PCR) NOT DETECTED [place] Human Metapneumo PCR NOT DETECTED Nasal M.pneumoniae (PCR) NOT DETECTED Nasal SARS-CoV-2 (PCR) NOT DETECTED Last Dose Date Last Dose Time Digoxin 08/06/20 08/07/20 08/07/20 21:14 04:45 04:45 WBC 6.9 RBC 4.16 L Hgb 11.5 L Hct 35.8 L MCV 86.1 MCH 27.6 MCHC 32.1 RDW 14.0 Plt Count 262 MPV 9.8 Neut # (Auto) 5.0 Lymph # (Auto) 0.9 L [place] # (Auto) 0.7 Eos # (Auto) 0.2 Baso # (Auto) 0.0 Absolute Nucleated RBC 0.00 Nucleated RBC % 0.0 VBG pH VBG pCO2 VBG pO2 VBG HCO3 VBG Total CO2 VBG O2 Saturation VBG Base Excess Sodium Potassium Chloride Carbon Dioxide Anion Gap BUN Creatinine Estimated GFR (MDRD) Glucose Calcium Magnesium Total Bilirubin AST ALT Alkaline Phosphatase Troponin I High Sens 28.6 H* B-Natriuretic Peptide 4202 H Total Protein Albumin Globulin Albumin/Globulin Ratio Lipase Nasal Adenovirus (PCR) Nasal B. parapertussis DNA (PCR) Nasal Coronavir 229E PCR Nasal Coronavir HKU1 PCR Nasal Coronavir NL63 PCR Nasal Coronavir OC43 PCR Nasal Enterovir/Rhinovir PCR Nasal Influenza B PCR Nasal Influenza A PCR Nasal Parainfluen 1 PCR Nasal Parainfluen 2 PCR Nasal Parainfluen 3 PCR Nasal Parainfluen 4 PCR Nasal RSV (PCR) Nasal B.pertussis DNA PCR Nasal C.pneumoniae (PCR) [place] Human Metapneumo PCR Nasal M.pneumoniae (PCR) Nasal SARS-CoV-2 (PCR) Last Dose Date Last Dose Time Digoxin 08/07/20 08/07/20 08/07/20 04:45 04:45 04:45 WBC RBC Hgb Hct MCV MCH MCHC RDW Plt Count MPV Neut # (Auto) Lymph # (Auto) [place] # (Auto) Eos # (Auto) Baso # (Auto) Absolute Nucleated RBC Nucleated RBC % VBG pH VBG pCO2 VBG pO2 VBG HCO3 VBG Total CO2 VBG O2 Saturation VBG Base Excess Sodium 135 Potassium 3.4 L Chloride 101 Carbon Dioxide 21 Anion Gap 13.0 BUN 32 H Creatinine 0.7 Estimated GFR (MDRD) 85 L Glucose 106 H Calcium 8.4 L Magnesium 2.0 Total Bilirubin 0.9 AST 115 H ALT 163 H Alkaline Phosphatase 176 H Troponin I High Sens 25.4 H* B-Natriuretic Peptide Total Protein 5.4 L Albumin 2.9 L Globulin 2.5 Albumin/Globulin Ratio 1.2 Lipase Nasal Adenovirus (PCR) Nasal B. parapertussis DNA (PCR) Nasal Coronavir 229E PCR Nasal Coronavir HKU1 PCR Nasal Coronavir NL63 PCR Nasal Coronavir OC43 PCR Nasal Enterovir/Rhinovir PCR Nasal Influenza B PCR Nasal Influenza A PCR Nasal Parainfluen 1 PCR Nasal Parainfluen 2 PCR Nasal Parainfluen 3 PCR Nasal Parainfluen 4 PCR Nasal RSV (PCR) Nasal B.pertussis DNA PCR Nasal C.pneumoniae (PCR) [place] Human Metapneumo PCR Nasal M.pneumoniae (PCR) Nasal SARS-CoV-2 (PCR) Last Dose Date UNKNOWN Last Dose Time UNKNOWN Digoxin < 0.2 08/08/20 08/08/20 08/08/20 04:47 04:47 04:47 WBC 7.4 RBC 4.35 Hgb 11.9 L Hct 37.7 MCV 86.7 MCH 27.4 MCHC 31.6 L RDW 14.0 Plt Count 278 MPV 10.2 Neut # (Auto) 5.4 Lymph # (Auto) 1.0 L [place] # (Auto) 0.8 Eos # (Auto) 0.1 Baso # (Auto) 0.0 Absolute Nucleated RBC 0.00 Nucleated RBC % 0.0 VBG pH VBG pCO2 VBG pO2 VBG HCO3 VBG Total CO2 VBG O2 Saturation VBG Base Excess Sodium 132 L Potassium 3.9 Chloride 99 L Carbon Dioxide 20 L Anion Gap 13.0 BUN 40 H Creatinine 0.8 Estimated GFR (MDRD) 73 L Glucose 130 H Calcium 8.6 Magnesium Total Bilirubin 1.2 H AST 141 H ALT 185 H Alkaline Phosphatase 264 H Troponin I High Sens B-Natriuretic Peptide 4820.00 H Total Protein 5.6 L Albumin 3.0 L Globulin 2.6 Albumin/Globulin Ratio 1.2 Lipase Nasal Adenovirus (PCR) Nasal B. parapertussis DNA (PCR) Nasal Coronavir 229E PCR Nasal Coronavir HKU1 PCR Nasal Coronavir NL63 PCR Nasal Coronavir OC43 PCR Nasal Enterovir/Rhinovir PCR Nasal Influenza B PCR Nasal Influenza A PCR Nasal Parainfluen 1 PCR Nasal Parainfluen 2 PCR Nasal Parainfluen 3 PCR Nasal Parainfluen 4 PCR Nasal RSV (PCR) Nasal B.pertussis DNA PCR Nasal C.pneumoniae (PCR) [place] Human Metapneumo PCR Nasal M.pneumoniae (PCR) Nasal SARS-CoV-2 (PCR) Last Dose Date Last Dose Time Digoxin - DIAGNOSTIC IMAGING Diagnostic Imaging Results: Final report reviewed - FOLLOW UP Follow Up: She will be following up with her dietary aide teacher at [facility] this week and with her new primary care provider the following week. I have asked her to obtain labs with her dietary aide teacher to ensure that her renal function is stable. - TIME SPENT Time Spent in Discharge (Minutes): 34"
--- NOTE | 2020-08-08 10:09 | Discharge Plan ---
Discharge Plan Problem Reviewed?: Yes Disposition: Home, Self Care Condition: Stable Prescriptions: Spironolactone [Aldactone] 25 mg PO DAILY #30 tab Benzonatate [Tessalon] 100 mg PO TID PRN #15 cap PRN Reason: Cough Diet: Low Sodium Activity Restrictions: Activity as Tolerated Health Concerns: You were seen in the hospital because of exacerbation of your heart failure. You were treated with IV Lasix and he responded well to this. You have lost over 3 kg since hospitalization and your leg swelling has improved. You were also found to have rhinovirus infection which is the common cold. It is recommended that you wear a mask and part take an appropriate hand hygiene to decrease the risk of transmission. Plan of Treatment: Please take Lasix 20 mg twice daily until you follow-up with your fire watchman this Thursday. Please continue to take metoprolol 25 mg once a day and digoxin as you previously have been taking. Please start taking spironolactone 25 mg once a day. It is important that you check your weight daily and contact your fire watchman if you notice your weight is increasing or you develop worsening leg swelling or difficulty breathing. It is important that you have labs checked this Thursday when you follow-up with your fire watchman to make sure your kidney function is stable. Care Goals: Please return to the emergency department if you develop worsening shortness of breath, chest pain. Please contact your primary care provider or fire watchman if you develop worsening leg edema or weight gain. Assessment: The patient expressed understanding of the treatment plan. Additional Instructions or Follow Up instructions: Please follow-up with your fire watchman as scheduled and have repeat labs drawn to make sure your kidney function is stable. Follow-Up Care: [facility] [address] - CHF Classes No Smoking: If you smoke, Please STOP! Call for help.
[2020-08-08 13:30] VITALS: BP 115/75
== END 2020-08-08 13:12 | disposition home or self-care (01) ==
LOC: ED 09:45 → UNDOADMOB 14:28 → INTOOBSV 14:28 → MS3 14:28
PROVIDERS: ADMIT Internal Medicine; ATTEND Internal Medicine
DX: I50.23 Acute on chronic systolic (congestive) heart failure (principal); I42.8 Other cardiomyopathies; E87.1 Hypo-osmolality and hyponatremia; R79.89 Other specified abnormal findings of blood chemistry; J06.9 Acute upper respiratory infection, unspecified; Z79.899 Other long term (current) drug therapy; Z20.822 Contact with and (suspected) exposure to COVID-19; Z79.82 Long term (current) use of aspirin; I34.0 Nonrheumatic mitral (valve) insufficiency
CPT/HCPCS: 0202U; 36415; 71045; 71275; 80053; 80162; 82803; 83690; 83735; 83880; 84484; 85025; 93005; 93306; 94761; 96374; 96376; 99284; 99285; A9270; G0378; J7120; Q9967

== ENCOUNTER 2020-09-24 | Outpatient (CLI) | payer OTHER | END 2020-09-24 08:58 | disposition short-term general hospital (02) | CPT/HCPCS: A0425; A0427 ==

== ENCOUNTER 2020-12-11 21:34 | Outpatient (CLI) | payer OTHER | END 2020-12-11 21:35 | disposition home or self-care (01) | LOC: COV 21:34 | PROVIDERS: ATTEND Physician Assistant Medical | DX: Z01.812 Encounter for preprocedural laboratory examination (principal); I42.8 Other cardiomyopathies; Z20.822 Contact with and (suspected) exposure to COVID-19 ==